=== PATIENT | female | born 1955 ===

== ENCOUNTER → 2021-01-03 12:11 | Outpatient (CLI) | payer BC, SELFPAY ==
--- NOTE | ~2021-01-03 | MR_ITS ---
EXAMINATION: MR shoulder LT wo con DATE: 01/03/2021 13:02 INDICATION: Complete rotator cuff tear or rupture presenting with left shoulder pain and limited rang e of motion TECHNIQUE: Magnetic resonance imaging (MRI) of the left shoulder was performed without intravenous co ntrast. Sequences included axial PD-weighted FS FSE, coronal oblique PD-weighted FS FSE, coronal obli que T2-weighted FS FSE, sagittal PD-weighted FS FSE, and sagittal T1-weighted SE. COMPARISON: None. FINDINGS: Coracoacromial arch: The acromion undersurface is curved in morphology (type II). The coracoacromial ligament is normal. M ild acromioclavicular osteoarthritis. Rotator cuff: Moderate supraspinatus tendinopathy with small mild intrasubstance tear measuring approximately 3 mm AP along the superior facet footplate and involving no greater than one third of the tendon thickness . The infraspinatus, teres minor and subscapularis tendons are normal. Normal rotator cuff muscle bul k and signal. Biceps tendon, glenoid labrum and glenohumeral cartilage: Long head of the biceps tendon is normal. Glenoid labrum is normal. Glenohumeral cartilage is normal. Fluid: Physiologic amount of fluid in the glenohumeral joint and biceps tendon sheath. No loose osteochondra l bodies. Small amount of fluid in the subacromial/subdeltoid bursa consistent with mild bursitis. Bones: Normal marrow signal with no edema, fracture or abnormal marrow replacing process. IMPRESSION: 1. Moderate supraspinatus tendinopathy with small mild intrasubstance tear along the superior facet f ootplate. 2. Mild acromioclavicular osteoarthritis with mild subacromial/subdeltoid bursitis. Reviewed, dictated and finalized at location A. IMPRESSION: 1. Moderate supraspinatus tendinopathy with small mild intrasubstance tear nicholas g the superior facet footplate. 2. Mild acromioclavicular osteoarthritis with mild subacromial/subdeltoid bursi tis.
== END ==
DX: M75.122 Complete rotator cuff tear or rupture of left shoulder, not specified as traumatic (principal); M19.012 Primary osteoarthritis, left shoulder; M75.52 Bursitis of left shoulder
CPT/HCPCS: 73221